=== PATIENT | male | born 1980 | race Two or more races ===

== ENCOUNTER → 2016-09-10 | Outpatient (CLI) | payer OTHER ==
[~2016-09-10] MED LIST: NO MEDICATIONS; PANTOPRAZOLE SO40 MG PO
--- NOTE | ~2016-09-10 | CT2 ---
[facility] A Service [facility] RADIOLOGY TEXT RESULTS PATIENT: BRIANA SERRANO LOCATION: [facility] : 80 UNIT #: [id number] AGE: [address]: Tray Anaya MD SEX: M ORDER DR: [id number] [facility]. [place], [place] [address] [id number] O MR#: [id number] Acc #: [id number] NAME: BRIANA SERRANO : 1980 SEX: M STUDY DATE/TIME: 09/10/2016 16:14 UNIT: [facility] ROOM: STUDY DESCRIPTION: CT Abd and Pelv W Cont Attending Physician: Tray Anaya M.D. Referring Physician: Tray Anaya M.D. Ordering Physician: Tray Anaya M.D. Primary Care Physician: Macey Lawton Aprn MEDICAL IMAGING REPORT This report is preliminary unless electronic signature is present EXAM CT abdomen and pelvis with contrast INDICATIONS Left inguinal and groin region pain for the past 2 months. PROCEDURE Contrast-enhanced CT abdomen and pelvis 100 mL of Isovue-370. Comparison 12/17/[address] exam was performed with one or more of the following radiation dose reduction techniques: automatic exposure control, adjustment of mA and/or kV according to patient size, and iterative reconstruction. FINDINGS Abdomen with contrast: Included lung bases are clear. The liver, spleen adrenal glands pancreas gallbladder unremarkable. There is a 2-3 mm nonobstructing calculus in the lower pole of the left kidney. There is a 3 mm nonobstructing calculus in the upper pole of the left kidney. No radiodense ureteral calculus or hydronephrosis. Bowel loops nondilated, appendix normal. Pelvis with contrast: No pelvic mass or fluid. No appreciable inflammatory change seen in the left inguinal region. No aggressive appearing bone lesion. IMPRESSION 1. No acute findings. 2. Nonobstructing calculi in the left kidney. [facility] A Service [facility] RADIOLOGY TEXT RESULTS PATIENT: BRIANA SERRANO LOCATION: [facility] : 80 UNIT #: [id number] AGE: [address]: Tray Anaya MD SEX: M ORDER DR: Dictated by... Clayton Patrick M.D. THIS IS AN ELECTRONICALLY VERIFIED REPORT Clayton Patrick M.D. at 09/11/2016 3:56 PM SHAGGY/tanya TD: 09/10/2016 21:37 JOB #: [id number] MEDICAL IMAGING REPORT Page 1 of 1 COPY
== END | disposition home or self-care (01) ==
LOC: CCAT 13:52
DX: R10.9 Unspecified abdominal pain (principal); N20.0 Calculus of kidney
CPT/HCPCS: 74177; Q9967

== ENCOUNTER → 2016-10-05 | Outpatient (CLI) | payer OTHER ==
--- NOTE | ~2016-10-05 | MR17 ---
[facility] A Service of [facility] RADIOLOGY TEXT RESULTS PATIENT: BRIANA MORALES LOCATION: [facility] : 80 UNIT #: [id number] AGE: [address]: Joshua Lara MD SEX: M ORDER DR: [id number] [place] [id number] O MR#: [id number] Acc #: [id number] NAME: BRIANA MORALES : 1980 SEX: M STUDY DATE/TIME: 10/05/2016 18:11 UNIT: [facility] ROOM: STUDY DESCRIPTION: MR Brain WWo Contrast Attending Physician: Joshua Lara M.D. Referring Physician: Joshua Lara M.D. Ordering Physician: Joshua Lara M.D. Primary Care Physician: Joshua Lara M.D. MRI CENTER REPORT This report is preliminary unless electronic signature is present. EXAM MRI of the brain with and without contrast, dated 10/05/16. COMPARISON None. HISTORY Status post trauma, dated 09/30/16. When patient was cleaning house, wood fell from ceiling and hit him on the top of the head. Patient incidentally had blurred vision for few seconds then complained of dizziness for 5 days. FINDINGS Multisequence, multiplanar imaging of the brain was obtained with and without contrast. 15 mL of MultiHance was administered intravenously. No acute stroke, space-occupying intracranial mass, mass effect, midline shift or hydrocephalus. Thick slices through the sella with the pituitary gland, pineal region and upper cervical spine are within normal limits. Vascular flow voids of the major cerebral arteries and dural venous sinuses are not routine not obstructed in these thicker slices. S-shaped nasal septal deviation is noted with mild paranasal sinus mucosal thickening. Imaged orbits with the ocular structures and mastoids do not demonstrate any significant abnormality. Postcontrast sequences do not demonstrate enhancing lesions. IMPRESSION No demonstrable intracranial abnormality. Dictated by... Leny Oneill M.D. [facility] A Service of [facility] RADIOLOGY TEXT RESULTS PATIENT: BRIANA MORALES LOCATION: [facility] : 80 UNIT #: [id number] AGE: [address]: Joshua Lara MD SEX: M ORDER DR: THIS IS AN ELECTRONICALLY VERIFIED REPORT Leny Oneill M.D. at 10/11/2016 5:27 PM CPR/lizette TD: 10/09/2016 15:28 JOB #: [id number] MRI CENTER REPORT Page 1 of 1
== END | disposition home or self-care (01) ==
LOC: SRAD 17:09
DX: S09.90XA Unspecified injury of head, initial encounter (principal); R42 Dizziness and giddiness
CPT/HCPCS: 70553; A9581

== ENCOUNTER → 2016-12-13 | Outpatient (CLI) | payer OTHER ==
--- NOTE | ~2016-12-13 | MR75 ---
[facility] A Service of [facility] RADIOLOGY TEXT RESULTS PATIENT: BRIANA SERRANO [facility] : 80 UNIT #: [id number] AGE: [address]: Lei Moreno MD SEX: M ORDER DR: [id number] [place] [address] [id number] [facility]. [place], [place] [address] [id number] O MR#: [id number] Acc #: [id number] NAME: BRIANA SERRANO : 1980 SEX: M STUDY DATE/TIME: 12/13/2016 14:39 UNIT: [facility] ROOM: STUDY DESCRIPTION: MR Hip Arthrogram Rt Attending Physician: Lei Moreno M.D. Referring Physician: Lei Moreno M.D. Ordering Physician: Lei Moreno M.D. Primary Care Physician: Macey Lawton Aprn MRI CENTER REPORT This report is preliminary unless electronic signature is present. EXAM MR arthrogram right hip HISTORY 36-year-old male complains of left hip pain. 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 FINDINGS Routine MR arthrogram was performed of the right hip following the intraarticular injection of dilute gadolinium. Bone structure and alignment appears normal. No focal marrow edema. Contrast distends the hip joint. No loose body. There is a moderate amount of extraarticular extravasation of contrast. No definite labral tear or detachment. Ligamentum teres appears normal. Articular cartilage unremarkable. Normal tendinous attachments about the right hip. Internal pelvic structures unremarkable. Trace amount of edema noted over the right greater trochanter nonspecific. IMPRESSION No significant pathology noted about the right hip. Some extravasation of contrast into the pericapsular soft tissues slightly degrades image quality but again no definitive labral tear or detachment or paralabral cyst. Dictated by... Amena Henao M.D. THIS IS AN ELECTRONICALLY VERIFIED REPORT Amena Henao M.D. at 12/14/2016 5:07 PM SABRA/bri STS. [facility] A Service of [facility] RADIOLOGY TEXT RESULTS PATIENT: BRIANA SERRANO LOCATION: [facility] #: [id number] : 80 UNIT #: [id number] AGE: [address]: Lei Moreno MD SEX: M ORDER DR: TD: 12/14/2016 10:44 JOB #: [id number] MRI CENTER REPORT Page 1 of 1 COPY
--- NOTE | ~2016-12-13 | XA40 ---
[facility] A Service of [facility] RADIOLOGY TEXT RESULTS PATIENT: BRIANA SERRANO LOCATION: [facility] : 80 UNIT #: [id number] AGE: [address]: Lei Moreno MD SEX: M ORDER DR: [id number] [facility] [address] [facility]. [place], [place] [address] [id number] O MR#: [id number] Acc #: [id number] NAME: BRIANA SERRANO : 1980 SEX: M STUDY DATE/TIME: 12/13/2016 12:32 UNIT: [facility] ROOM: STUDY DESCRIPTION: XA Arthrogram Hip Lt Attending Physician: Lei Moreno M.D. Referring Physician: Lei Moreno M.D. Ordering Physician: Lei Moreno M.D. Primary Care Physician: Macey Lawton Aprn MEDICAL IMAGING REPORT This report is preliminary unless electronic signature is present EXAM Bilateral hip arthrogram INDICATION Bilateral hip pain. 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 PROCEDURE The risks, benefits, and alternatives to the procedure were explained to the patient, and signed, informed consent was obtained. He was placed supine on the angiographic table and his left hip was prepped and draped in the usual sterile fashion. Time-out was performed as per protocol. Skin and subcutaneous tissues were anesthetized with buffered lidocaine and a 22-gauge spinal needle was advanced into the joint space. Contrast was injected which confirmed location within the joint space and subsequently additional contrast material was administered. No obvious abnormality was seen. Images in both the abducted and adducted position were obtained. At this point, I turned my attention to the right hip. Again the skin and subcutaneous tissues were anesthetized with buffered lidocaine and the 22-gauge spinal needle was advanced into the joint space. Again contrast was injected which confirmed location within the joint space and additional contrast material was administered. Again no obvious abnormality was seen and images were obtained in both the abducted and adducted position. Patient will be sent to the MRI for the remainder of his examination. Total fluoroscopy time was 0.9 minutes. AK was 30 mGy. IMPRESSION Technically successful bilateral hip arthrogram as noted above. Fluoroscopy was used during the procedure and permanent images were saved. Please see the separately dictated report of the MRI of both hips for discussion of findings within the joints. [facility] A Service of [facility] RADIOLOGY TEXT RESULTS PATIENT: BRIANA SERRANO LOCATION: [facility] : 80 UNIT #: [id number] AGE: [address]: Lei Moreno MD SEX: M ORDER DR: Dictated by... Savanah Rodriguez M.D. THIS IS AN ELECTRONICALLY VERIFIED REPORT Savanah Rodriguez M.D. at 12/19/2016 4:20 PM MILTON/bri TD: 12/17/2016 09:32 JOB #: [id number] MEDICAL IMAGING REPORT Page 1 of 1 COPY
--- NOTE | ~2016-12-13 | MR74 ---
[facility] A Service of [facility] RADIOLOGY TEXT RESULTS PATIENT: BRIANA SERRANO [facility] UNIT #: [id number] AGE: [address]: Lei Moreno MD SEX: M ORDER DR: [id number] [facility] [address] [facility]. [place], [place] [address] [id number] O MR#: [id number] Acc #: [id number] NAME: BRIANA SERRANO : 1980 SEX: M STUDY DATE/TIME: 12/13/2016 13:57 UNIT: [facility] ROOM: STUDY DESCRIPTION: MR Hip Arthrogram Lt Attending Physician: Lei Moreno M.D. Referring Physician: Lei Moreno M.D. Ordering Physician: Lei Moreno M.D. Primary Care Physician: Macey Lawton Aprn MRI CENTER REPORT This report is preliminary unless electronic signature is present. EXAM MR arthrogram, left hip. HISTORY 36-year-old male complains of left hip and inguinal pain for 5 months. Was running felt a sharp pain, feels like muscle injury. Active as a trust manager. FINDINGS Routine MR arthrogram was performed of the left hip following the intraarticular injection of dilute gadolinium. Bone structure and alignment appears normal. No focal marrow edema. Contrast distends the hip joint. No loose body. Focal imbibition of contrast is noted along the anterior labrum at about the 10-11 o'clock acetabular axis. This extends over about 1.2 cm in length and is compatible with a partial labral detachment. No paralabral cyst. Posterior labrum appears intact. The ligamentum teres is intact. Pelvic and proximal thigh musculature appears normal. Normal tendinous attachments about the hips and pelvis. Internal pelvic structures unremarkable. IMPRESSION Partial detachment of the anterosuperior labrum over about a 1.2 cm length from about the 10-11 o'clock acetabular axis. No paralabral cyst. Dictated by.Araseli Henao M.D. THIS IS AN ELECTRONICALLY VERIFIED REPORT Amena Henao M.D. at 12/14/2016 5:07 PM [facility] A Service of [facility] RADIOLOGY TEXT RESULTS PATIENT: BRIANA SERRANO LOCATION: [facility] : 80 UNIT #: [id number] AGE: [address]: Lei Moreno MD SEX: M ORDER DR: SABRA/parveen TD: 12/14/2016 10:19 JOB #: [id number] MRI CENTER REPORT Page 1 of 1 COPY
== END | disposition home or self-care (01) ==
LOC: CIVR 11:58
DX: M25.552 Pain in left hip (principal); M25.551 Pain in right hip
CPT/HCPCS: 73525; 73722; 77002; Q9967

== ENCOUNTER → 2016-12-21 | Outpatient (CLI) | payer OTHER ==
--- NOTE | ~2016-12-21 | CR142 ---
[facility] A Service of [facility] RADIOLOGY TEXT RESULTS PATIENT: BRIANA SERRANO LOCATION: [facility] : 80 UNIT #: [id number] AGE: [address]: Joshua Lara MD SEX: M ORDER DR: [id number] [place] [id number] O MR#: [id number] Acc #: [id number] NAME: BRIANA SERRANO : 1980 SEX: M STUDY DATE/TIME: 12/21/2016 18:00 UNIT: [facility] ROOM: STUDY DESCRIPTION: CR Hand Min 3 Views Rt Attending Physician: Joshua Lara M.D. Referring Physician: Joshua Lara M.D. Ordering Physician: Joshua Lara M.D. Primary Care Physician: Macey Lawton Aprn MEDICAL IMAGING REPORT This report is preliminary unless electronic signature is present. EXAM Right hand INDICATIONS Right hand pain for 1 day. Fifth digit swelling and bruising. FINDINGS 3 views of the right hand without comparison. FINDINGS There is no acute fracture or dislocation. Alignment is anatomic. There is some generalized soft tissue swelling of the fifth digit. IMPRESSION No fracture. Soft tissue swelling of the fifth digit. Dictated by... Ramez Conteh M.D. THIS IS AN ELECTRONICALLY VERIFIED REPORT Ramez Conteh M.D. at 12/22/2016 3:55 PM RPC/pcl TD: 12/22/2016 13:37 JOB #: [id number] MEDICAL IMAGING REPORT Page 1 of 1
== END | disposition home or self-care (01) ==
LOC: SRAD 17:52
DX: S69.91XA Unspecified injury of right wrist, hand and finger(s), initial encounter (principal); M79.89 Other specified soft tissue disorders
CPT/HCPCS: 73130

== ENCOUNTER → 2017-01-16 | Day surgery (SDC) | payer OTHER ==
--- NOTE | ~2017-01-16 | OR ---
Unit #: [id number] #: [id number] Patient: BRIANA SERRANO [id number] [address] [address] [id number] O MR#: [id number] NAME: BRIANA SERRANO ROOM: Date of Procedure: 01/16/2017 Admission Date: 01/16/2017 Surgeon: Reg Tafoya M.D. : 1980 Attending Physician: Reg Tafoya M.D. Primary Care Physician: Joshua Lara M.D. OPERATIVE REPORT PROCEDURE PERFORMED Esophagogastroduodenoscopy with biopsy. INDICATIONS FOR PROCEDURE The patient presents with an epigastric right upper quadrant pain, also with intermittent dysphagia. MEDICATIONS Monitored anesthesia. POSTOPERATIVE FINDINGS 1. Normal esophagus. 2. Mild chronic appearing gastritis. Biopsies taken. 3. Normal duodenum and distal duodenum. PLAN 1. Trial of PPIs. 2. Follow up on pathology report. DESCRIPTION OF PROCEDURE The patient was explained of the procedure risk and benefits along with risk and benefits of anesthesia. He was brought to the endoscopy room. Propofol anesthesia was given. Bite block was placed. Scope was passed down the mouth into esophagus, stomach, duodenum, and distal duodenum. Findings as described. Biopsies taken. Gently, I pulled the scope out of the patient's mouth. He tolerated it well. Dictated by... Mikaela Ortiz/jimmie TD: 01/17/2017 10:19 JOB #: [id number] Unit #: [id number] #: [id number] Patient: BRIANA SERRANO OPERATIVE REPORT Page 1 of 1 X Reg Tafoya MD X PROCEDURE OPERATIVE NOTE
== END | disposition home or self-care (01) ==
LOC: COPS 10:07
DX: K29.50 Unspecified chronic gastritis without bleeding (principal); B96.81 Helicobacter pylori [H. pylori] as the cause of diseases classified elsewhere; K21.9 Gastro-esophageal reflux disease without esophagitis; R13.10 Dysphagia, unspecified
CPT/HCPCS: 88305; 88312; J2250